=== PATIENT | female | born 1990 | race African-American/Black ===

== ENCOUNTER 2025-05-05 16:16 | Emergency (ER) | payer MEDICAID ==
[~2025-05-05] VITALS: Ht 165.1 cm; Wt 89.0 kg
[2025-05-05 16:18] VITALS: O2SAT 98
[2025-05-05 16:25] VITALS: BP 136/84; PULSE 99; RESP 18; TEMP 36.8; O2SAT 99
== END 2025-05-05 17:59 | disposition left against medical advice (07) ==
LOC: ER 16:16
DX: K13.79 Other lesions of oral mucosa (principal)
CPT/HCPCS: 99282